=== PATIENT | female | born 1955 | race Caucasian/White ===

== ENCOUNTER 2018-01-06 11:59 | Observation (INO) | payer MEDICAID, SELFPAY ==
[2018-01-06] VITALS (13 sets, daily range): BP systolic 102–129; BP diastolic 65–93; PULSE 77–88; RESP 15–19; TEMP 36.6–37; O2SAT 92–99; BMI 40.4; BMI 40.6; BMI 40.7
--- NOTE | 2018-01-06 12:09 | RAD_ITS ---
STUDY: X-RAY CHEST REASON FOR EXAM: Female, 62 years old. Chest pain TECHNIQUE: Single AP portable view of the chest. COMPARISON: None. FINDINGS: The lungs are clear and expanded. There is no demonstrated pleural abnormality. Normal size heart. Normal mediastinum and collins. Normal visualized pulmonary arteries. Normal visualized aortic arch and descending thoracic aorta. There is demineralization of the osseous structures. There is degenerative osteoarthritis of the bilateral shoulders. There is no demonstrated abnormality of the visualized soft tissue structures of the upper abdomen. RAD/Chest 1 View (Portable) IMPRESSION: Degenerative changes, as described above. No demonstrated acute cardiopulmonary process. Electronically Signed: Annetta Villanueva MD at 12:36 EDT Tel , Service support ,
--- NOTE | 2018-01-06 12:09 | EKG12_ITS ---
Test Reason : CP Blood Pressure : / mmHG Vent. Rate : 077 BPM Atrial Rate : 077 BPM P-R Int : 120 ms QRS Dur : 136 ms QT Int : 424 ms P-R-T Axes : 049 -33 008 degrees QTc Int : 479 ms Normal sinus rhythm Left axis deviation Right bundle branch block Abnormal ECG Confirmed by NOÉ OLVERA, REGIS ([id number]), manager editorial ALVARO CASE ([id number]) on 01/10/2018 1:30:57 PM Referred By: ASHLEIGH Confirmed By:REGIS UMANZOR MD
[2018-01-06 12:26] LABS: Absolute Lymphocyte Count 3.13 X10^3/ul (0.83-4.51); Absolute Neutrophil Count 4.4 X10^3/uL (2.0-7.7); Basophil# 0.03 X10^3/uL; Basophil% 0.4 % (0-1); Eosinophil# 0.23 X10^3/uL; Eosinophils% 2.8 % (0-5); Hematocrit 35.3 % (37-47); Hemoglobin 11.7 g/dl (12.0-15.0); Lymphocyte # 3.13 X10^3/ul (4.0); Lymphocyte % 37.6 % (19-41); Mean Corp Hgb Conc 33.1 g/gl (32-36); Mean Corpuscular Hgb 30.8 pg (27.0-32.0); Mean Corpuscular Volume 92.9 fL (81-99); Mean Platelet Vol. 10.1 fl (6.2-12.0); Monocyte# 0.56 X10^3/uL; Monocyte% 6.7 % (0-10); Neutrophil # 4.35 X10^3/uL (2.7-7.7); Neutrophil % 52.3 % (47-70); POSITIVE COUNT NO; POSITIVE DIFFERENTIAL NO; POSITIVE MORPHOLOGY NO; Platelet Count 266 K/mm3 (150-450); RBC Distribution Width CV 12.4 % (11.6-14.6); White Blood Count 8.3 K/mm3 (4.4-11.0)
--- NOTE | 2018-01-06 12:41 | ED.DCSUM_ITS ---
- ER Visit Summary Date of Service: 01/06/18 Chief Complaint: Chest pain History of Present Illness: The patient is a 62 F with chest pain since yesterday afternoon. She describes it as a heaviness. Associated with some nausea and chills. Patient has a history of diabetes, hypertension, and hyperlipidemia. No history of heart disease, PE, or dissection. Non-smoker. She had a cardiac catheterization about 15 years ago at [facility] in [facility], and she thinks it was normal. Physical Examination: Vital signs unremarkable. Afebrile. Alert and oriented. Skin appears normal without diaphoresis or pallor. Heart regular rate and rhythm. Lungs clear. Pulses strong and equal. Calves soft and supple. Test Results: EKG shows sinus rhythm at a rate of 77. Right bundle branch block pattern noted. No sign of acute ischemia or infarction. Lab work and chest x-ray pending. Emergency Department Course and Treatment: Patient placed on a monitor. She received aspirin. I am concerned for ACS. Nothing to suggest PE or dissection Based on history. Will monitor. Hemoglobin 11.7. Glucose 210 and BUN 21. Troponin normal. Chest x-ray showed chronic changes. Patient reassessed. Vitals stable. Given her risk factors, will need admission for further care. I spoke with the hospitalist who will admit. Treatment Plan: As above Disposition: Admission Impression: 1. Chest pain This note was generated with [employer] dictation software. It may contain incorrect words, spelling, and punctuation that were not noted in review of the chart prior to signing ED Disposition - Plan for ED Patient: Chief Complaint: Chest Pain Referrals: Mick Villarreal [Primary Care Provider] -
[2018-01-06 12:43] LABS: Anion Gap 8 (5-15); BUN 21 mg/dL (7-18); BUN/Creat Ratio 20.6 RATIO (10-20); Calcium,Total 9.2 mg/dL (8.5-10.1); Chloride 102 mmol/L (98-107); Creatinine, Serum 1.02 mg/dL (0.55-1.02); EST Glomerular Filtration Rate 58 mL/min (>60); Est Glom Filt Rate - Afr Amer 70 mL/min (>60); Estimated Creatinine Clearance 42.05 ml/min; Glucose 210 mg/dL (74-106); Potassium 3.7 mmol/L (3.5-5.1); Sodium Level 138 mmol/L (136-145)
--- NOTE | 2018-01-06 13:40 | NURSING ---
MARIFERU OBS CP SLOAN
--- NOTE | 2018-01-06 15:09 | PCM.HP.STD ---
History of Present Illness Date of Admission: 01/06/18 Chief Complaint: Chest Pain The patient is a 62 year old F [] Past Medical History Allergies hydrocodone Adverse Reaction (Verified 01/06/18 12:05) Itching Home Medications: Ambulatory Orders Medication Instructions Recorded Cyanocobalamin (Vitamin B-12) 5,000 mcg PO DAILY 01/06/18 [Vitamin B12] Insulin Regular, Human [Humulin R] 3 unit SQ TIDCM 01/06/18 Levothyroxine [Synthroid] 175 mcg PO DAILY 01/06/18 Lisinopril/Hydrochlorothiazide 1 each PO DAILY 01/06/18 [Zestoretic 20-25 mg Tablet] Metformin HCl [Glucophage] 1,000 mg PO BIDCM 01/06/18 Potassium Chloride [Klor-Con 10] 10 meq PO DAILY 01/06/18 glipiZIDE [Glucotrol] 10 mg PO BID 01/06/18 Smoking Status: Never smoker - Physical Exam Vital Signs Temp Pulse Resp BP Pulse Ox 98 F 82 16 112/65 97 01/06/18 14:45 01/06/18 14:45 01/06/18 14:45 01/06/18 14:46 01/06/18 14:45 Oxygen Delivery Method Room Air Weight: 97.6 kg Body Mass Index (BMI) 40.6
[2018-01-06 16:51] LABS: Bedside Glucose 154 mg/dL (70-110)
--- NOTE | 2018-01-06 20:21 | HP.PCM_ITS ---
History of Present Illness Date of Admission: 01/06/18 Chief Complaint: Chest pain The patient is a 62 year old F past medical history of diabetes type 2 hypertension and dyslipidemia who presented to the emergency room due to chest pain that started this afternoon she describes heaviness in the mid sternal area , denies any shortness of breath, cough, palpitations, rapid heartbeat or dizziness. her workup in the emergency room is essentially unremarkable, we are placing her in the hospital to rule out acute coronary syndrome and further workup. Past Medical History Allergies hydrocodone Adverse Reaction (Verified 01/06/18 12:05) Itching Home Medications: Ambulatory Orders Medication Instructions Recorded Cyanocobalamin (Vitamin B-12) 5,000 mcg PO DAILY 01/06/18 [Vitamin B12] Insulin Regular, Human [Humulin R] 3 unit SQ TIDCM 01/06/18 Levothyroxine [Synthroid] 175 mcg PO DAILY 01/06/18 Lisinopril/Hydrochlorothiazide 1 each PO DAILY 01/06/18 [Zestoretic 20-25 mg Tablet] Metformin HCl [Glucophage] 1,000 mg PO BIDCM 01/06/18 Potassium Chloride [Klor-Con 10] 10 meq PO DAILY 01/06/18 glipiZIDE [Glucotrol] 10 mg PO BID 01/06/18 Smoking Status: Never smoker Review of Systems Comment: All Systems were reviewed with pertinent positives mentioned in the HPI above. VTE Information - Inpt Only VTE Present on Admission: Yes VTE Mechan Device Prophylaxis: SCD's VTE Pharm Prophylaxis ordered?: No - Physical Exam General: Alert, Oriented x3 HEENT: Atraumatic Oral: Moist Mucosa Neck: Supple Lungs: Clear to auscultation Cardiovascular: Regular rate, Normal S1, Normal S2 Abdomen: Bowel Sounds Present, Soft, Non Tender Extremities: No edema Vital Signs Temp Pulse Resp BP Pulse Ox 98 F 82 16 112/65 93 01/06/18 14:45 01/06/18 15:06 01/06/18 14:45 01/06/18 14:46 01/06/18 19:04 Oxygen Delivery Method Room Air Weight: 97.6 kg Body Mass Index (BMI) 40.6 Intake and Output for Last 24 Hours 01/04/18 01/05/18 01/06/18 23:59 23:59 23:59 Intake Total 320 / 320 Balance 320 / 320 Laboratory Tests Past 24 Hrs 01/06/18 17:01 Troponin I < 0.02 POC Glucose 01/06/18 16:45 POC Glucose 154 H Assessment/Plan 1. Chest pain; we will obtain serial cardiac enzymes to rule out acute coronary syndrome, assuming negative cardiac enzymes , she will be scheduled for a stress test to rule out ischemia. 2. DM type II; will hold off on metformin and glipizide , she will be be started on regular insulin sliding scale for glycemic spikes. 3. hypothyroidism; we will restart his Synthroid. 4. DVT Prophylaxis with SCDs and early ambulation Code Visit OBSV E&M: 23184 Initial observation care L2
[2018-01-06 22:41] LABS: Bedside Glucose 252 mg/dL (70-110)
[2018-01-07] VITALS (7 sets, daily range): BP systolic 109–128; BP diastolic 70–77; PULSE 73–89; RESP 16–18; TEMP 36.5–36.8; O2SAT 92–93
[2018-01-07 03:21] LABS: Hematocrit 32.5 % (37-47); Hemoglobin 10.8 g/dl (12.0-15.0); Mean Corp Hgb Conc 33.2 g/gl (32-36); Mean Corpuscular Volume 93.4 fL (81-99); Mean Platelet Vol. 10.2 fl (6.2-12.0); Platelet Count 273 K/mm3 (150-450); RBC Distribution Width CV 12.1 % (11.6-14.6); Red Blood Count 3.48 M/mm3 (4.2-5.4); White Blood Count 8.9 K/mm3 (4.4-11.0)
[2018-01-07 03:23] LABS: Scan Indicated on CBC? Y/N NO
[2018-01-07 03:29] LABS: Prothrombin Time (Protime)PT. 12.7 SECONDS (11.7-14.9)
[2018-01-07 03:30] LABS: Partial Thromboplast Time 26.5 Seconds (24.1-36.2)
[2018-01-07 03:31] LABS: Anion Gap 9 (5-15); BUN 20 mg/dL (7-18); Calcium,Total 8.8 mg/dL (8.5-10.1); Chloride 106 mmol/L (98-107); Creatinine, Serum 1.11 mg/dL (0.55-1.02); EST Glomerular Filtration Rate 53 mL/min (>60); Est Glom Filt Rate - Afr Amer 64 mL/min (>60); Estimated Creatinine Clearance 38.64 ml/min; Glucose 226 mg/dL (74-106); Potassium 3.9 mmol/L (3.5-5.1); Sodium Level 144 mmol/L (136-145)
--- NOTE | 2018-01-07 05:55 | EKG12_ITS ---
Test Reason : AM EKG Blood Pressure : / mmHG Vent. Rate : 079 BPM Atrial Rate : 079 BPM P-R Int : 134 ms QRS Dur : 130 ms QT Int : 418 ms P-R-T Axes : 017 -28 018 degrees QTc Int : 479 ms Normal sinus rhythm Right bundle branch block Abnormal ECG When compared with ECG of 06-JAN-2018 12:00, MANUAL COMPARISON REQUIRED, DATA IS UNCONFIRMED Confirmed by NOÉ OLVERA, REGIS ([id number]), newspaper photo editor ALVARO CASE ([id number]) on 01/12/2018 3:39:44 PM Referred By: SLOAN Confirmed By:REGIS UMANZOR MD
[2018-01-07] MEDS: Levothyroxine 175 MCG Tablet PO (06:52)
[2018-01-07 06:56] LABS: Bedside Glucose 295 mg/dL (70-110)
[2018-01-07 11:06] LABS: Bedside Glucose 385 mg/dL (70-110)
--- NOTE | 2018-01-07 11:55 | STRESSREP ---
Stress Test Report Pharmacologic myocardial perfusion stress test. 62-year-old lady with a history of chest pain. Stress protocol: Resting EKG demonstrates normal sinus rhythm with a rate of 77 bpm. Normal blood pressure of 112/62 mmHg. Right bundle branch block pattern is noted. 0.4 mg regadenoson was infused per usual protocol followed by rapid intravenous saline flush injection. Continuous EKG monitoring was performed. At rest there were no ST or T-wave changes noted suggest abnormal flow reserve. The maximum heart rate attained was 104 bpm which was 66% of maximum predicted heart rate the maximum workload attained was 1 metabolic equivalent. No clinical angina was noted. Myocardial perfusion protocol. 14.2 mCi of technetium 99m sestamibi was injected at rest. 0.4 mg of regadenoson was infused per usual protocol. At peak infusion 43.8 mCi of technetium 99m sestamibi was injected. Stress images were obtained. Stress and rest images were reconstructed and compared in the short axis vertical long and horizontal long axis. Gated images were also obtained. Perfusion SPECT analysis. Review of the stress images demonstrate normal uptake of tracer noted in all areas of the myocardium the resting images similarly demonstrate normal uptake of tracer noted in all areas of the myocardium. No areas of reversibility are noted suggest ischemia and no previous infarct is noted. Gated SPECT analysis. The gated ejection fraction is noted to be 80%. Conclusion: Normal pharmacologic myocardial perfusion stress test. Preserved ejection fraction.
--- NOTE | 2018-01-07 12:02 | PCM.DC.SUM ---
Discharge Date and Diagnosis Date of Admission: 01/06/18 Date of Discharge: 01/07/18 Hospital Course and Treatment Imaging Results: 01/07/18 05:55 Nuclear Stress Test - Chemical [NM] AM (NON MEDS) Summary of Care Provided: This is a 62 year old F past medical history of diabetes type 2 , hypertension and dyslipidemia who presented to the emergency room due to chest pain , she describes heaviness in the mid sternal area, denies any shortness of breath, cough, palpitations, rapid heartbeat or dizziness. Her workup in the emergency room is essentially unremarkable, and was placed in the hospital and rule out acute coronary syndrome with negative cardiac enzymes. She then underwent a stress is that was negative for ischemia and she was discharged home in a stable condition symptom-free. She was advised to follow-up with the primary care doctor should her symptoms return. Home Medications: Medications to take at Discharge Cyanocobalamin (Vitamin B-12) [Vitamin B12] 5,000 mcg PO DAILY 01/06/18 Insulin Regular, Human [Humulin R] 3 unit SQ TIDCM 01/06/18 Levothyroxine [Synthroid] 175 mcg PO DAILY 01/06/18 Lisinopril/Hydrochlorothiazide [Zestoretic 20-25 mg Tablet] 1 each PO DAILY 01/06/18 Metformin HCl [Glucophage] 1,000 mg PO BIDCM 01/06/18 Potassium Chloride [Klor-Con 10] 10 meq PO DAILY 01/06/18 glipiZIDE [Glucotrol] 10 mg PO BID 01/06/18 Primary Care Physician: Mick Villarreal [Primary Care Provider] - Medical Necessity - Tobacco Use Smoking Status: Never smoker Meaningful Use Info Meaningful Use Diagnoses (Choose all that apply): None applicable Code Visit OBSV E&M: 24043 Observation care discharge
--- NOTE | 2018-01-07 12:04 | PCM.DC ---
You will use the following diet at home:: Regular Discharge Activity: Return to Normal Activity Allergies/Adverse Reactions: Allergies hydrocodone Adverse Reaction (Verified 01/06/18 12:05) Itching Medications to take at Discharge Cyanocobalamin (Vitamin B-12) [Vitamin B12] 5,000 mcg PO DAILY 01/06/18 Insulin Regular, Human [Humulin R] 3 unit SQ TIDCM 01/06/18 Levothyroxine [Synthroid] 175 mcg PO DAILY 01/06/18 Lisinopril/Hydrochlorothiazide [Zestoretic 20-25 mg Tablet] 1 each PO DAILY 01/06/18 Metformin HCl [Glucophage] 1,000 mg PO BIDCM 01/06/18 Potassium Chloride [Klor-Con 10] 10 meq PO DAILY 01/06/18 glipiZIDE [Glucotrol] 10 mg PO BID 01/06/18 Primary Care Physician: Mick Villarreal [Primary Care Provider] - In 1 Week Proposed Discharge Date: 01/07/18
== END 2018-01-07 12:46 | disposition home or self-care (01) ==
LOC: ED 12:57 → PCU 14:05
PROVIDERS: Admitting Provider Internal Medicine; Emergency Provider Emergency Medicine; Family Provider Family Medicine; Visit Provider Internal Medicine
DX: R07.89 Other chest pain (principal); R11.0 Nausea; E11.9 Type 2 diabetes mellitus without complications; E78.5 Hyperlipidemia, unspecified; I10 Essential (primary) hypertension; Z79.899 Other long term (current) drug therapy; Z79.4 Long term (current) use of insulin; E03.9 Hypothyroidism, unspecified
CPT/HCPCS: 36415; 71045; 78452; 80048; 82962; 84484; 85025; 85027; 85610; 85730; 93005; 93017; 99218; 99285; A9500; A4216; G0378; J2785